=== PATIENT | male | born 1940 | race Caucasian/White ===

== ENCOUNTER 2020-01-24 13:01 | Outpatient (CLI) | payer MEDICARE, OTHER ==
--- NOTE | 2020-01-24 13:24 | RAD ---
XR Hip Rt 2-3 View INDICATION: Right hip pain COMPARISON: None FINDINGS: Bones: No acute osseous abnormality. Bone mineralization appears within normal limits. 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 Intrapelvic contents: Visualized bowel gas pattern is within normal limits. Surrounding soft tissues: Radiographically normal. IMPRESSION: 1. No acute osseous abnormality.
== END 2020-01-24 13:02 | disposition home or self-care (01) ==
LOC: SCSRAD 13:01
PROVIDERS: ATTEND Family Medicine Sports Medicine
DX: M25.551 Pain in right hip (principal)

== ENCOUNTER 2020-01-27 15:37 | Outpatient (CLI) | payer MEDICARE, OTHER ==
--- NOTE | 2020-01-27 16:29 | RAD ---
RIGHT KNEE THREE VIEWS: 01/27/20 HISTORY: Right knee pain. FINDINGS/IMPRESSION: No fracture, dislocation, or bony destruction seen. No significant osteophytosis identified. POS: [facility]
--- NOTE | 2020-01-27 18:09 | RAD ---
RIGHT FOOT THREE VIEWS: 01/27/20 HISTORY: Chronic right foot pain. Some mild arthritic changes of the foot including changes of the midfoot and first metatarsophalangea l joint. There are no signs of fracture or dislocation. IMPRESSION: No acute bony changes. POS: [facility]
== END 2020-01-27 15:38 | disposition home or self-care (01) ==
LOC: SCSRAD 15:37
PROVIDERS: ATTEND Family Medicine Sports Medicine
DX: M79.671 Pain in right foot (principal); M25.561 Pain in right knee

== ENCOUNTER 2021-04-16 09:44 | Outpatient (CLI) | payer MEDICARE, OTHER | END 2021-04-16 09:45 | disposition home or self-care (01) | LOC: BICRAD 09:44 | PROVIDERS: ATTEND Thoracic Surgery (Cardiothoracic Vascular Surgery) | DX: C64.2 Malignant neoplasm of left kidney, except renal pelvis (principal); R91.1 Solitary pulmonary nodule | CPT/HCPCS: 71046 ==

== ENCOUNTER 2021-08-16 12:30 | Outpatient (CLI) | payer MEDICARE, OTHER | END 2021-08-16 12:31 | disposition home or self-care (01) | LOC: PET 12:30 | PROVIDERS: ATTEND Internal Medicine Hematology & Oncology | DX: C64.2 Malignant neoplasm of left kidney, except renal pelvis (principal); R91.1 Solitary pulmonary nodule; C43.4 Malignant melanoma of scalp and neck | CPT/HCPCS: 78815; A9552 ==

== ENCOUNTER 2021-12-18 09:30 | Outpatient (CLI) | payer MEDICARE, OTHER | END 2021-12-18 09:31 | disposition home or self-care (01) | LOC: PET 09:30 | PROVIDERS: ATTEND Internal Medicine Hematology & Oncology | DX: C64.2 Malignant neoplasm of left kidney, except renal pelvis (principal); C43.4 Malignant melanoma of scalp and neck | CPT/HCPCS: 78815; A9552 ==

== ENCOUNTER → 2022-03-12 | Outpatient (CLI) | payer MEDICARE, OTHER | LOC: PET 08:00 | PROVIDERS: ATTEND Internal Medicine Hematology & Oncology | DX: C34.2 Malignant neoplasm of middle lobe, bronchus or lung (principal); C43.4 Malignant melanoma of scalp and neck; C64.2 Malignant neoplasm of left kidney, except renal pelvis; Z51.11 Encounter for antineoplastic chemotherapy | CPT/HCPCS: 78815; A9552 ==